=== PATIENT | female | born 2000 | race Caucasian/White ===

== ENCOUNTER 2021-12-24 22:22 | Emergency (ER) | payer SELFPAY | END 2021-12-25 01:38 | disposition home or self-care (01) | LOC: CSHERS 22:22 | DX: O20.8 Other hemorrhage in early pregnancy (principal); O99.891 Other specified diseases and conditions complicating pregnancy; R07.9 Chest pain, unspecified; O99.331 Smoking (tobacco) complicating pregnancy, first trimester; F17.200 Nicotine dependence, unspecified, uncomplicated; Z3A.00 Weeks of gestation of pregnancy not specified | CPT/HCPCS: 36415; 76856; 86900; 86901 ==